=== PATIENT | male | born 1955 | race Caucasian/White ===

== ENCOUNTER 2023-03-29 08:56 | Outpatient (REF) | payer BC, SELFPAY ==
[2023-03-29 12:16] LABS: MANUAL DIFF FLAG NO
[2023-03-29 12:35] LABS: Basophils Percent Auto 0.3 % (0-2); Eosinophils Absolute Auto 0.1 X10*3/uL (0.0-0.4); Eosinophils Percent Auto 1.3 % (0-4); Hematocrit 43.9 % (42.0-52.0); Hemoglobin 14.4 g/dl (14.0-18.0); Imm Gran Abs Auto 0.03 X10*3/uL (0.00-0.03); Imm Gran Pct Auto 0.3 % (0.0-0.4); Lymphocytes Absolute Auto 2.7 X10*3/uL (1.2-4.9); Lymphocytes Percent Auto 27.6 % (20-40); Mean Corpuscular HGB Conc 32.8 g/dl (31.0-36.0); Mean Corpuscular Hemoglobin 29.8 pg (27.0-33.0); Mean Corpuscular Volume 90.9 fL (80.0-98.0); Mean Platelet Volume 11.6 fL (9.4-12.4); Monocytes Absolute Auto 0.5 X10*3/uL (0.1-1.2); Monocytes Percent Auto 4.7 % (2-11); Neutrophils Absolute Auto 6.5 x10*3/uL (2.0-8.3); Neutrophils Percent Auto 65.8 % (45-73); Platelet Count 294 X10*3/uL (160-400); Red Blood Count 4.83 X10*6/uL (4.60-5.80); Red Cell Distribution Width 14.2 % (11.0-16.0); White Blood Count 9.8 X10*3/uL (4.8-10.8)
[2023-03-29 12:58] LABS: Alanine Aminotransferase 14 U/L (0-40); Albumin Level 3.8 g/dL (3.5-5.0); Alkaline Phosphatase 81 U/L (39-117); Anion Gap 10 (12-20); Aspartate Amino Transferase 12 U/L (5-37); Bilirubin Total 0.5 mg/dL (0.0-1.0); Blood Urea Nitrogen 27 mg/dL (9-16); Calcium 9.9 mg/dL (8.4-10.2); Carbon Dioxide 27 mmol/L (22-29); Chloride 107 mmol/L (96-108); Cholesterol 167 mg/dL (<200); Estimated Glomerular Filt Rate > 60; Glucose Fasting 91 mg/dL (60-99); HDL Cholesterol 37 mg/dL (>40); LDL Cholesterol Calculated 117 mg/dL (<100); Potassium 4.2 mmol/L (3.3-5.1); Sodium 140 mmol/L (135-145); Total Protein 7.4 g/dL (6.5-8.0); Triglycerides 65 mg/dL (<150)
[2023-03-29 13:12] LABS: Prostate Specific Antigen 1.89 ng/mL (<0.05-4.0)
== END 2023-03-29 08:57 | disposition home or self-care (01) ==
LOC: HO.WFDLDS 08:56
PROVIDERS: Visit Provider Internal Medicine
DX: Z12.5 Encounter for screening for malignant neoplasm of prostate (principal); I10 Essential (primary) hypertension; E78.00 Pure hypercholesterolemia, unspecified; N40.0 Benign prostatic hyperplasia without lower urinary tract symptoms; K21.9 Gastro-esophageal reflux disease without esophagitis; Z72.0 Tobacco use
CPT/HCPCS: 36415; 80053; 80061; 84153; 85025

== ENCOUNTER 2023-04-04 08:36 | Outpatient (REF) | payer BC, SELFPAY ==
[2023-04-04 12:03] LABS: Appearance Urine Clear; Color Urine Yellow; Glucose Urine UA Negative (Negative); Leukocyte Esterase Urine Negative (Negative); Nitrite Urine Negative (Negative); UMIC TRIGGER UA YES; Urine Blood Trace (Negative); Urine Ketones Negative (Negative); Urine Protein Negative (Neg-Trace)
[2023-04-04 12:08] LABS: Bacteria Urine None Seen (None Seen); Hyaline Casts Urine 0-2 /LPF (0-2); RBC Urine 0-2 /HPF (0-2); Squamous Epithelial Cell Urine 0-2 /HPF (0-2); WBC Urine 0-5 /HPF (0-5)
== END 2023-04-04 08:37 | disposition home or self-care (01) ==
LOC: HO.WFDLNP 08:36
PROVIDERS: Visit Provider Internal Medicine
DX: I10 Essential (primary) hypertension (principal); E78.00 Pure hypercholesterolemia, unspecified; N40.0 Benign prostatic hyperplasia without lower urinary tract symptoms; Z72.0 Tobacco use
CPT/HCPCS: 81001; 81003

== ENCOUNTER 2023-11-27 07:36 | Outpatient (REF) | payer BC, SELFPAY ==
[2023-11-27 11:09] LABS: MANUAL DIFF FLAG NO
[2023-11-27 11:29] LABS: Basophils Percent Auto 0.5 % (0-2); Eosinophils Absolute Auto 0.1 X10*3/uL (0.0-0.4); Eosinophils Percent Auto 1.5 % (0-4); Hematocrit 39.9 % (42.0-52.0); Hemoglobin 13.7 g/dl (14.0-18.0); Imm Gran Abs Auto 0.02 X10*3/uL (0.00-0.03); Imm Gran Pct Auto 0.3 % (0.0-0.4); Lymphocytes Absolute Auto 2.4 X10*3/uL (1.2-4.9); Lymphocytes Percent Auto 32.4 % (20-40); Mean Corpuscular HGB Conc 34.3 g/dl (31.0-36.0); Mean Corpuscular Hemoglobin 31.6 pg (27.0-33.0); Mean Corpuscular Volume 92.1 fL (80.0-98.0); Mean Platelet Volume 12.2 fL (9.4-12.4); Monocytes Absolute Auto 0.4 X10*3/uL (0.1-1.2); Monocytes Percent Auto 5.6 % (2-11); Neutrophils Absolute Auto 4.4 x10*3/uL (2.0-8.3); Neutrophils Percent Auto 59.7 % (45-73); Platelet Count 272 X10*3/uL (160-400); Red Blood Count 4.33 X10*6/uL (4.60-5.80); Red Cell Distribution Width 14.7 % (11.0-16.0); White Blood Count 7.4 X10*3/uL (4.8-10.8)
[2023-11-27 11:34] LABS: Alanine Aminotransferase 15 U/L (0-40); Albumin Level 3.9 g/dL (3.5-5.0); Alkaline Phosphatase 77 U/L (39-117); Anion Gap 12 (12-20); Aspartate Amino Transferase 16 U/L (5-37); Bilirubin Total 0.6 mg/dL (0.0-1.0); Blood Urea Nitrogen 23 mg/dL (9-16); Calcium 9.8 mg/dL (8.4-10.2); Carbon Dioxide 25 mmol/L (22-29); Chloride 103 mmol/L (96-108); Cholesterol 165 mg/dL (<200); Estimated Glomerular Filt Rate 58; Glucose Fasting 95 mg/dL (60-99); HDL Cholesterol 40 mg/dL (>40); LDL Cholesterol Calculated 108 mg/dL (<100); Sodium 136 mmol/L (135-145); Total Protein 7.6 g/dL (6.5-8.0); Triglycerides 88 mg/dL (<150)
[2023-11-27 12:00] LABS: Prostate Specific Antigen 2.13 ng/mL (<0.05-4.0)
== END 2023-11-27 07:37 | disposition home or self-care (01) ==
LOC: HO.WFDLDS 07:36
PROVIDERS: Visit Provider Internal Medicine
DX: I10 Essential (primary) hypertension (principal); Z12.5 Encounter for screening for malignant neoplasm of prostate; J44.9 Chronic obstructive pulmonary disease, unspecified; N40.0 Benign prostatic hyperplasia without lower urinary tract symptoms
CPT/HCPCS: 36415; 80053; 80061; 84153; 85025

== ENCOUNTER 2024-12-24 13:49 | Outpatient (AMB) | payer BC, SELFPAY ==
--- NOTE | 2024-12-24 13:51 | MHC.PC.OV ---
Vital Signs 12/24/24 13:56 Height 5 ft 10 in Weight 227 lb BMI 32.6 BP 174/72 H Blood Pressure Location Lt brachial Position Sitting Respiration 18 Pulse 82 Pulse Source Pulse Oximeter Temp 98.2 F Temp Source Temporal Artery Scan Pulse Oximetry (%) 97 Intake Visit Reasons: Annual / Dr Sosa Relationship Management Lead Required: No Accompanied by: Self / Same As Patient Allergies No Known Allergies Allergy (Verified 12/24/24 13:51) Tobacco use date assessed: 12/24/24 HPI HPI Comments History of Present Illness Details The patient is a 69-year-old male presenting with ongoing issues related to generalized anxiety disorder. The patient reports a history of anxiety that began approximately 15 years ago, initially experienced as a sensation similar to a heart attack. More recently, the patient has been experiencing increased anxiety surrounding specific situations, such as dental work and flying. The patient has been on lorazepam (Ativan) for management of anxiety, taking 0.5 to 1 mg as needed. He describes feeling anxious when not taking the medication, indicating a possible physiological dependence. The patient reports that denial of this medication results in heightened anxiety. Additionally, the patient reports a history of elevated blood pressure that is commonly interpreted as white coat hypertension. He checks blood pressure at home sporadically, noting consistent readings in the range of 145-147 mmHg, with a low reading of 138 mmHg at one point. Lastly, the patient has historically had elevated cholesterol levels, although he has not been managed with medication for this condition. He acknowledges consuming a poor diet high in junk food. 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, currently active with partial longterm - Eats a diet high in junk food - Limited exercise, with occasional golf play noted [facility] Medical History (Updated 12/24/24 @ 14:24 by Carrillo Blandon MD) Generalized anxiety disorder Screening for lung cancer Hyperlipidemia Hypertension Social History Housing: House Patient Tobacco Use Status: Current everyday Tobacco user Tobacco use type: Cigarette Cigarette Packs Per Day: 1 Years Smoked: 55 e-Cigarette/Vaping Use: Never Used service: No Current occupational status: employed Questionnaire PHQ-9 Over the last 2 weeks, how often have you been bothered by any of the following problems? 1. Little interest or pleasure in doing things: not at all 2. Feeling down, depressed, or hopeless: not at all 3. Trouble falling or staying asleep, or sleeping too much: not at all 4. Feeling tired or having little energy: not at all 5. Poor appetite or overeating: not at all 6. Feeling bad about yourself - or that you are a failure or have let yourself or your family down: not at all 7. Trouble concentrating on things, such as reading the newspaper or watching television: not at all 8. Moving or speaking so slowly that other people could have noticed. Or the opposite - being so fidgety or restless that you have been moving around a lot more than usual: not at all 9. Thoughts that you would be better off or of hurting yourself in some way: not at all Total score: 0 Depression Screening Interpretation: Negative Depression Screening Done: Yes 68544 - PHQ-9 Billing: Yes Source: Developed by Drs. Arnold Noe, Renee Carter, Alexander Kwok and colleagues, with an educational tiesha from [employer]. Thrive Questionnaire Date Thrive assessed: 12/24/24 I am a: Patient What is your living situation today?: I have a steady place to live Within the past 12 months, did the food you bought not last and you didn't have the money to get more?: Never true Within the past 12 months, did you worry whether your food would run out before you got money to buy more?: Never true Do you have trouble paying for medicines?: No Do you have trouble getting transportation to medical appointments?: No Do you have trouble paying your heating and electricity bill?: No Do you have trouble taking care of your child, family member or friend?: No Do you have trouble with day-to-day activities such as bathing, preparing meals, shopping, managing finances, etc.?: No Are you currently unemployed and looking for a job?: No Are you interested in more education?: No THRIVE Score: 0 AUDIT C Alcohol Use Questionnaire (AUDIT-C) 1. How often do you have a drink containing alcohol?: 2-4 times a month 2. How many drinks containing alcohol do you have on a typical day when you are drinking?: 1 or 2 Total Score: 2 Score Reviewed/Action Taken: Yes MAN-7 AMB Questionnaire MAN-7 Date MAN - 7 assessed: 12/24/24 Feeling nervous, anxious, or on edge: 1 = Several days Not being able to stop or control worryin = Not at all Worrying too much about different things: 0 = Not at all Trouble relaxin = Not at all Being so restless that it is hard to sit still: 1 = Several days Becoming easily annoyed or irritable: 0 = Not at all Feeling afraid as if something awful might happen: 0 = Not at all Total MAN-7 score (0-4 normal; 5-9 mild; 10-14 moderate; 15-21 severe): 2 Source: Developed by Drs. Arnold Noe, Renee Carter, Alexander Kwok and colleagues, with an educational tiesha from [employer]. MAN-7 Assessment Billing MAN-7 Assessment Tool: MAN-7 Assessment 83895 Review of Systems Const Details: - Psychiatric: Reports anxiety issues - Cardiovascular: Denies symptoms of heart disease, but reports elevated blood pressure in medical settings - Respiratory: Denies respiratory distress, recent imaging clear - Gastrointestinal: Denies significant gastrointestinal complaints, has not had recent colonoscopy All systems reviewed & are unremarkable except as noted in HPI and below Physical exam (Primary Care) Vital Signs: Last Vital Signs Temp 98.2 F 12/24/24 13:56 Pulse 82 12/24/24 13:56 Resp 18 12/24/24 13:56 BP 174/72 H 12/24/24 13:56 Pulse Ox 97 12/24/24 13:56 BMI result Body Mass Index 32.6 Tobacco/Smoking Status: Tobacco use Status Tobacco use date assessed 12/24/24 12/24/24 13:59 Patient Tobacco Use Status Current everyday Tobacco 12/24/24 13:59 Tobacco use type Cigarette 12/24/24 13:59 e-Cigarette/Vaping Use Never Used 12/24/24 13:59 Are you ready to quit: No Tobacco cessation counseling provided: Yes Relapse Prevention: discussed the importance of a supportive environment Number of minutes spent counselin CPT code: 51376 - 4-10 Minutes Depression Screening Interpretation: Negative Const Other: General: +Alert and oriented, Well nourished, No acute distress. Eye: Pupils are equal, round and reactive to light, Intact accommodation, Extraocular movements are intact, Normal conjunctiva, Vision unchanged. HENT: Normocephalic, Atraumatic, Tympanic membranes are clear, Normal hearing, Oral mucosa is moist, No pharyngeal erythema, Ear canals patent. Respiratory: Lungs CTA bilaterally, No wheeze, Respirations are non-labored. Cardiovascular: Regular rate, Regular rhythm, S1 auscultated, S2 auscultated, No murmur, Good pulses equal in all extremities, Normal peripheral perfusion, No edema. Gastrointestinal: Soft, Non-tender, Non-distended, Normal bowel sounds, No organomegaly. Musculoskeletal: Normal range of motion, Normal strength, No tenderness, No swelling, No deformity, Normal gait. Integumentary: Warm, Dry, [place], Intact. Neurologic: Alert, Oriented, Normal sensory, Normal motor function, No focal defects, Cranial Nerves II-XII are grossly intact, Normal deep tendon reflexes. Psychiatric: Cooperative, Appropriate mood & affect, Normal judgment. Coding Level of Care Code New Pt Level 4 (66810) New Pt Prev Care >65yr (80547) Diagnoses Hyperlipidemia, unspecified hyperlipidemia type E78.5 Hyperlipidemia type: unspecified Hypertension, unspecified type I10 Hypertension type: unspecified Screening for lung cancer Z12.2 Generalized anxiety disorder F41.1 Additional Codes PHQ-9 - 18899 - PHQ-9 Billing: Yes ([id number]) MAN-7 Assessment Billing - MAN-7 Assessment Tool: MAN-7 Assessment 33862 ([id number]) Vital Signs *Quality* - CPT code: 70010 - 4-10 Minutes ([id number]) Assessment & Plan Assessment & Plan (1) Hyperlipidemia: Comment: - Blood work to reassess cholesterol levels. (Prior levels last year elevated LDL) - Consider initiation of cholesterol-lowering medication pending lab results. Code(s): E78.5 - Hyperlipidemia, unspecified Category: Medical Qualifiers: Hyperlipidemia type: unspecified Qualified Code(s): E78.5 - Hyperlipidemia, unspecified (2) Hypertension: Comment: - Encourage regular blood pressure monitoring at home, four times a week, with readings to be reviewed in a follow-up appointment. - Discuss lifestyle modifications such as reducing salt intake and increasing physical activity. (Will continue current regiment and change if required) Code(s): I10 - Essential (primary) hypertension Category: Medical Qualifiers: Hypertension type: unspecified Qualified Code(s): I10 - Essential (primary) hypertension (3) Screening for lung cancer: Comment: - Encouraged smoking cessation with discussion of risks of ongoing tobacco use. - No smoking cessation program initiated at this time. (Not interested) Code(s): Z12.2 - Encounter for screening for malignant neoplasm of respiratory organs Category: Medical (4) Generalized anxiety disorder: Comment: - Transition from lorazepam to sertraline, starting on sertraline which takes about six weeks to be effective. - Tapering lorazepam to 0.25 mg twice daily for two weeks, then 0.25 mg once daily for two weeks, then discontinue. - Address potential dependence on lorazepam and monitor for withdrawal symptoms. Code(s): F41.1 - Generalized anxiety disorder Category: Medical Plan I discussed the transition from lorazepam to sertraline with the patient, emphasizing its safety profile and necessity for gradual lorazepam tapering to mitigate dependence. I explained the potential for withdrawal symptoms and ensured the patient understood the need to follow dosing instructions closely. Additionally, I highlighted the importance of addressing his high blood pressure and cholesterol through both lifestyle modifications and medication if needed. I instructed him to keep regular blood pressure logs and engage in healthier dietary practices. We also discussed the health implications of smoking and options for smoking cessation, understanding the patient's former resistance to quitting. Lastly, I informed him about the necessary screenings, such as the stool test for colorectal cancer, and the need for another round of blood tests. Orders: Orders Hemoglobin A1c Today E78.5 - Hyperlipidemia, unspecified, I10 - Essential (primary) hypertension Lipid Panel Today E78.5 - Hyperlipidemia, unspecified, I10 - Essential (primary) hypertension TSH reflex Free T4 Today E78.5 - Hyperlipidemia, unspecified, I10 - Essential (primary) hypertension Complete Blood Count Auto Diff Today E78.5 - Hyperlipidemia, unspecified, I10 - Essential (primary) hypertension Comprehensive Met. Panel Today E78.5 - Hyperlipidemia, unspecified, I10 - Essential (primary) hypertension Vitamin D 25-OH Total Today E78.5 - Hyperlipidemia, unspecified, I10 - Essential (primary) hypertension CT lung screening Today Z12.2 - Encounter for screening for malignant neoplasm of respiratory organs Referrals Cologuard Test Z12.11 - Encounter for screening for malignant neoplasm of colon, Z12.12 - Encounter for screening for malignant neoplasm of rectum Medications: New sertraline 50 mg PO DAILY 90 tabs 0RF 90 days lorazepam 0.25 mg (1/2 x 0.5 mg) PO BID 28 tabs 0RF anxiety 28 days Discontinued lorazepam Discontinued Reason: None 0.5 mg PO BID PRN 2 tabs 0RF anxiety Patient Instructions: - Take sertraline as prescribed and follow tapering schedule for lorazepam. - Record blood pressure readings four times a week, bring logs to next visit. - Attend lab work demanded today, across from the hospital. - Reduce salt intake and engage in physical activity. - Consider smoking cessation strategies, advice pending in future. - Return to the office in four weeks with detailed logs of blood pressure readings. - Complete stool test as prescribed. - Discuss any concerns or changes immediately.
[2024-12-24 13:56] VITALS: BP 174/72; PULSE 82; RESP 18; TEMP 36.8; O2SAT 97; BMI 32.6
== END 2024-12-24 15:32 | disposition home or self-care (01) ==
PROVIDERS: PCP Student in an Organized Health Care Education/Training Program; Visit Provider Student in an Organized Health Care Education/Training Program
DX: Z00.00 Encounter for general adult medical examination without abnormal findings (principal); F41.1 Generalized anxiety disorder; E78.5 Hyperlipidemia, unspecified; I10 Essential (primary) hypertension; Z12.2 Encounter for screening for malignant neoplasm of respiratory organs

== ENCOUNTER 2024-12-24 13:49 | Outpatient (REF) | payer BC, SELFPAY ==
[2024-12-24 14:49] LABS: MANUAL DIFF FLAG NO
[2024-12-24 15:23] LABS: Hematocrit 36.8 % (42.0-52.0); Hemoglobin 12.7 g/dl (14.0-18.0); Imm Gran Abs Auto 0.04 X10*3/uL (0.00-0.03); Imm Gran Pct Auto 0.5 % (0.0-0.4); Lymphocytes Absolute Auto 2.8 X10*3/uL (1.2-4.9); Mean Corpuscular HGB Conc 34.5 g/dl (31.0-36.0); Mean Corpuscular Hemoglobin 31.8 pg (27.0-33.0); Mean Corpuscular Volume 92.0 fL (80.0-98.0); NRBC Abs Auto 0.000 X10*3/uL (0.0-0.012); NRBC Pct Auto 0.0 /100WBC (0.0-0.2); Platelet Count 235 X10*3/uL (160-400); Red Blood Count 4.00 X10*6/uL (4.60-5.80); White Blood Count 8.0 X10*3/uL (4.8-10.8)
[2024-12-24 15:33] LABS: Hemoglobin A1C 121.0624 umol/L; Total Hemoglobin (HGBA1C) 3271.1246 umol/L
[2024-12-24 15:53] LABS: Alanine Aminotransferase 19 U/L (0-40); Albumin Level 4.1 g/dL (3.5-5.0); Alkaline Phosphatase 73 U/L (39-117); Anion Gap 13 (12-20); Aspartate Amino Transferase 25 U/L (5-37); Blood Urea Nitrogen 23 mg/dL (9-16); Calcium 9.6 mg/dL (8.4-10.2); Carbon Dioxide 25 mmol/L (22-29); Chloride 103 mmol/L (96-108); Cholesterol 183 mg/dL (<200); Estimated Glomerular Filt Rate 53; HDL Cholesterol 35 mg/dL (>40); Potassium 4.6 mmol/L (3.3-5.1); Sodium 136 mmol/L (135-145); Total Protein 8.3 g/dL (6.5-8.0); Triglycerides 102 mg/dL (<150)
== END 2024-12-24 13:50 | disposition home or self-care (01) ==
LOC: HO.LAB 13:49
PROVIDERS: PCP Internal Medicine; Visit Provider Student in an Organized Health Care Education/Training Program
DX: Z12.2 Encounter for screening for malignant neoplasm of respiratory organs (principal); F41.1 Generalized anxiety disorder; I10 Essential (primary) hypertension; E78.5 Hyperlipidemia, unspecified; Z79.899 Other long term (current) drug therapy
CPT/HCPCS: 36415; 80053; 80061; 82306; 83036; 84443; 85025; 96127

== ENCOUNTER 2025-01-21 16:05 | Outpatient (AMB) | payer BC, SELFPAY ==
--- NOTE | 2025-01-21 16:08 | A.OFFPC_ITS ---
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 The patient's blood pressure readings have typically ranged from 124/ to 142/, mostly within the acceptable range as previously discussed. The patient reported occasional elevated blood pressure readings, over 140, which is considered high, but generally falls within the 120s to 130s. Despite a history of these elevated readings, current measures are deemed acceptable. The patient's cholesterol levels were noted to be elevated, specifically with a low-density lipoprotein (LDL) cholesterol level of 128 mg/dL. The optimal level should be below 100 mg/dL. This elevated cholesterol level is adversely affecting the blood vessels over time, [place] to debris clogging a pipe. The patient reports an understanding of the risk factors associated and acknowledges the need for lifestyle modifications and medication initiation, specifically atorvastatin. The patient also has a history of generalized anxiety disorder, previously managed with lorazepam. Attempts to taper off lorazepam encountered difficulty due to the medication's size, necessitating a pill cutter. The patient acknowledges symptoms of withdrawal but indicates that these are manageable. The patient reports considering medication to manage anxiety and notes hesitancy with previous medications like sertraline. He was advised to take buspirone for immediate relief. Due to chronic anxiety concerns, it will be commenced at 5 mg twice daily. 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 - Nutrition: History of consuming proces sed and oily foods; intends to modify diet - Smoking: Current smoker, attempts to r educe intake noted - Has a seasonal residence in [place], here he reports healthier eating habits and weight loss [facility] Medical History (Updated 01/21/25 @ 16:28 by Carrillo Blandon MD) Generalized anxiety disorder Screening for lung cancer Hyperlipidemia Hypertension Social History Housing: House Patient Tobacco Use Status: Current everyday Tobacco user Tobacco use type: Cigarette Cigarette Packs Per Day: 1 Years Smoked: 55 Packs Per Year: 55 e-Cigarette/Vaping Use: Never Used service: No Current occupational status: employed Questionnaire Thrive Questionnaire Date Thrive assessed: 12/24/24 MAN-7 AMB Questionnaire MAN-7 Date MAN - 7 assessed: 12/24/24 Source: Developed by Drs. Arnold Noe, Renee Carter, Alexander Kwok and colleagues, with an educational tiesha from [employer]. Review of Systems Const Details: - Cardiovascular: Denies symptoms of hypertension at present - Metabolic: Reports high cholesterol - Psychiatric: Reports anxiety symptoms; denies severe withdrawal symptoms post lorazepam reduction All systems reviewed & are unremarkable except as reviewed in HPI and above Physical exam (Primary Care) Vital Signs: Last Vital Signs Temp 98.0 F 01/21/25 16:14 Pulse 83 01/21/25 16:14 Resp 20 01/21/25 16:14 BP 150/90 H 01/21/25 16:14 Pulse Ox 95 01/21/25 16:14 Oxygen Delivery Method Room Air 01/21/25 16:14 BMI result Body Mass Index 32.3 Tobacco/Smoking Status: Tobacco use Status Tobacco use date assessed 12/24/24 01/21/25 16:13 Patient Tobacco Use Status Current everyday Tobacco 01/21/25 16:13 Tobacco use type Cigarette 01/21/25 16:13 e-Cigarette/Vaping Use Never Used 01/21/25 16:13 Are you ready to quit: No Tobacco cessation counseling provided: Yes Relapse Prevention: discussed the importance of a supportive environment Number of minutes spent counselin CPT code: 99368 - 4-10 Minutes Thrive Assessment: Date of Thrive Assessment Date Thrive assessed 12/24/24 01/21/25 16:13 Const Other: General: +Alert and oriented, Well nourished, No acute distress. Eye: Pupils are equal, round and reactive to light, Intact accommodation, Extraocular movements are intact, Normal conjunctiva, Vision unchanged. HENT: Normocephalic, Atraumatic, Tympanic membranes are clear, Normal hearing, Oral mucosa is moist, No pharyngeal erythema, Ear canals patent. Respiratory: Lungs CTA bilaterally, No wheeze, Respirations are non-labored. Cardiovascular: Regular rate, Regular rhythm, S1 auscultated, S2 auscultated, No murmur, Good pulses equal in all extremities, Normal peripheral perfusion, No edema. Gastrointestinal: Soft, Non-tender, Non-distended, Normal bowel sounds, No organomegaly. Musculoskeletal: Normal range of motion, Normal strength, No tenderness, No swelling, No deformity, Normal gait. Integumentary: Warm, Dry, [place], Intact. Neurologic: Alert, Oriented, Normal sensory, Normal motor function, No focal defects, Cranial Nerves II-XII are grossly intact, Normal deep tendon reflexes. Psychiatric: Cooperative, Appropriate mood & affect, Normal judgment. Coding Level of Care Code Est Pt Level 4 (51505) Complex EM visit Add On G2211 Diagnoses Hypertension, unspecified type I10 Hypertension type: unspecified Hyperlipidemia, unspecified hyperlipidemia type E78.5 Hyperlipidemia type: unspecified Generalized anxiety disorder F41.1 Additional Codes Vital Signs *Quality* - CPT code: 39695 - 4-10 Minutes ([id number]) Assessment & Plan Assessment & Plan (1) Hypertension: Comment: - Patient presents with controlled hypertension on current medications including hydrochlorothiazide and lisinopril. - Reassurance provided that occasional readings above 140 are acceptable; long- term monitoring to continue. Code(s): I10 - Essential (primary) hypertension Category: Medical Qualifiers: Hypertension type: unspecified Qualified Code(s): I10 - Essential (primary) hypertension (2) Hyperlipidemia: Comment: - High LDL cholesterol at 128 mg/dL identified. - Initiation of atorvastatin advised for lifelong management to prevent cardiovascular events. - Encouragement to modify dietary habits, particularly reducing intake of oily and processed foods. Code(s): E78.5 - Hyperlipidemia, unspecified Category: Medical Qualifiers: Hyperlipidemia type: unspecified Qualified Code(s): E78.5 - Hyperlipidemia, unspecified (3) Generalized anxiety disorder: Comment: - Provided a transition from lorazepam to buspirone due to concerns about withdrawal and ease of administration. - Buspirone 5 mg advised twice daily for better management of anxiety symptoms. Code(s): F41.1 - Generalized anxiety disorder Category: Medical Plan: 4. Tobacco Use Disorder - Acknowledged patient continues to smoke; discussed health risks. - Encouraged cessation or further reduction of tobacco usage. Health Maintenance: - Discussed dietary improvements and reducing processed/oily food intake. - Risk assessment for cardiovascular disease management, initiated atorvastatin for cholesterol management. - Encouraged regular exercise and moderation in diet. Patient was informed and verbally consented to the use of an ambient scribe for clinic note documentation during this visit. Plan During the consultation, I discussed the patient's hypertension control which remains satisfactory under the current medication regimen. Occasional elevated readings are acceptable and adjusting medication was not deemed necessary. The patient's hyperlipidemia was a concern due to elevated LDL levels, resulting in the decision to initiate atorvastatin nightly, emphasizing its role in reducing cardiovascular event risks. The anxiety disorder is being addressed with a shift from tapering lorazepam to initiating buspirone for better symptomatic control. Finally, I emphasized reducing tobacco use due to its implications on general health. We also reviewed diet and lifestyle changes to further manage cholesterol and support cardiovascular health. The patient agrees with the proposed management plans and understands the importance of medication adherence and lifestyle changes. Medications: New buspirone 5 mg PO BID 180 tabs 3RF 90 days atorvastatin (Lipitor) 20 mg PO BEDTIME 90 tabs 3RF Discontinued sertraline Discontinued Reason: Doctor's Order 50 mg PO DAILY 90 days 90 tabs 0RF Patient Instructions: - Continue taking hydrochlorothiazide and lisinopril as prescribed. - Start atorvastatin at bedtime as instructed. - Begin buspirone, 5 mg twice daily, for anxiety management. - Reduce intake of processed and oily foods. - Aim to quit smoking and seek support if needed. - Return for follow-up in [place] at end of June or early July. - Monitor your symptoms and seek care if they worsen.
[2025-01-21 16:14] VITALS: BP 150/90; PULSE 83; RESP 20; TEMP 36.7; O2SAT 95; BMI 32.3
== END 2025-01-21 16:29 | disposition home or self-care (01) ==
LOC: HO.HMCHD 16:05
PROVIDERS: PCP Student in an Organized Health Care Education/Training Program; Visit Provider Student in an Organized Health Care Education/Training Program
DX: I10 Essential (primary) hypertension (principal); E78.5 Hyperlipidemia, unspecified; F41.1 Generalized anxiety disorder